=== PATIENT | female | born 1960 | race African-American/Black ===

== ENCOUNTER 2022-06-30 11:48 | Emergency (ER) | payer OTHER | END 2022-06-30 13:16 | disposition home or self-care (01) | LOC: CSHERS 11:48 | DX: S20.212A Contusion of left front wall of thorax, initial encounter (principal); G62.9 Polyneuropathy, unspecified; J32.9 Chronic sinusitis, unspecified; E11.9 Type 2 diabetes mellitus without complications; E78.00 Pure hypercholesterolemia, unspecified; F17.210 Nicotine dependence, cigarettes, uncomplicated; Z79.899 Other long term (current) drug therapy; W19.XXXA Unspecified fall, initial encounter | CPT/HCPCS: 99283 ==

== ENCOUNTER 2022-09-13 15:59 | Observation (INO) | payer OTHER ==
[2022-09-13] MEDS ORDERED: Ketorolac Tromethamine 30 MG/ML VIAL ONE (16:42)
[2022-09-13] MEDS ORDERED: Lorazepam 2 MG/ML VIAL ONE (16:43)
[2022-09-13] MEDS ORDERED: Ondansetron PF 4 MG/2 ML Vial ONE (17:30)
[2022-09-13 17:37] LABS: PTT 28.6 sec (22.0-33.0); Prothrombin Time 10.9 sec (9.5-12.1)
[2022-09-13 17:42] LABS: ALT (SGPT) 16 U/L (8-55); AST (SGOT) 18 U/L (5-34); Acetaminophen Less than 10 mcg/mL (10.0-30.0); Albumin 3.9 g/dL (3.4-4.8); Alcohol Less than 10.0 mg/dL (Less than 10); Alkaline Phosphatase 56 U/L (40-110); Anion Gap 14 mmol/L (10-20); BUN (Urea Nitrogen) 6 mg/dL (9.8-20.1); Bilirubin, Total 0.3 mg/dL (0.2-1.2); Calc. Creatinine Clearance 0 mL/min (70-130); Carbon Dioxide 24 mmol/L (23-31); Chloride 105 mmol/L (98-107); Estimated GFR 76; Globulin 2.7 g/dL (2.4-3.5); Glucose 142 mg/dL (80-115); Magnesium 2.1 mg/dL (1.6-2.6); Potassium 4.2 mmol/L (3.5-5.1); Protein, Total 6.6 g/dL (5.8-8.1); Salicylate Less than 8.0 mg/dL (15.0-30.0); Sodium 139 mmol/L (136-145)
[2022-09-13 18:03] LABS: Hemoglobin 12.6 g/dL (12.0-15.5); Mean Corpuscular HGB CONC 33.6 g/dL (32.0-36.0); Mean Corpuscular Hemoglobin 31.8 pg (27.0-33.0); Mean Corpuscular Volume 94.7 fl (81.6-98.3); Mean Platelet Volume 8.9 fl (7.4-10.4); Platelet Count 355 10x3/uL (150-450); RBC Distribution Width 13.9 % (11.5-14.5); Red Blood Cell (RBC) Count 3.96 10x6/uL (3.90-5.03); White Blood Cell (WBC) Count 5.8 10x3/uL (3.5-10.5)
[2022-09-13 18:16] LABS: MDiff Complete? YES
[2022-09-13 18:23] LABS: Eosinophils 3 % (0-10); Lymphocytes 45 % (21-51); Monocytes 3 % (0-10); Neutrophil 46 % (42-75)
[2022-09-13 18:24] LABS: Large Platelets SLIGHT (None Seen); Platelet Adequacy Comment Appears Adequate; Platelet Satellitism SLIGHT; RBC Morph Comment Within Normal Limits
[2022-09-13] MEDS ORDERED: Senokot S 8.6-50 MG TAB PO PRN (19:51)
[2022-09-13] MEDS ORDERED: Guaifenesin DM 100-10/5 ML UDCUP PO PRN (19:51)
[2022-09-13] MEDS ORDERED: Calcium Carbonate 500 MG ChewTAB PO PRN (19:51)
[2022-09-13] MEDS ORDERED: Dextrose 5% in Water 1,000 ML IV PRN (19:51)
[2022-09-13] MEDS ORDERED: Glucagon 1 MG/ML KIT IM PRN (19:51)
[2022-09-13] MEDS ORDERED: Dextrose 50% Abboject 50 ML SYRINGE SLOW IVP PRN (19:51)
[2022-09-13] MEDS ORDERED: Ondansetron PF 4 MG/2 ML Vial IVP PRN (19:51)
[2022-09-13] MEDS ORDERED: Acetaminophen 325 MG TAB PO PRN (19:51)
[2022-09-13 23:25] LABS: Amphetamine Not Detected (NotDetected); Barbiturates Screen Not Detected (NotDetected); Benzodiazepine Screen Detected (NotDetected); Cocaine Metabolite Screen Detected (NotDetected); Methadone Not Detected (NotDetected); Methamphetamine Not Detected (NotDetected); Opiate Screen Not Detected (NotDetected); Oxycodone Screen Not Detected (NotDetected); Phencyclidine (PCP) Not Detected (NotDetected); THC/Cannabinoid Screen Detected (NotDetected); Tricyclic Screen Not Detected (NotDetected)
[2022-09-13] MEDS ORDERED: Lactated Ringer's 1,000 ML IV SCH (23:45)
[2022-09-13] MEDS ORDERED: Aspirin 81 mg Enteric Coated Tablet PO SCH (23:45)
[2022-09-13] MEDS ORDERED: Gabapentin 100 MG CAP PO SCH (23:45)
[2022-09-13] MEDS ORDERED: Atorvastatin Calcium 10 MG TAB PO SCH (23:45)
[2022-09-13] MEDS ORDERED: Aspirin Chewable 81 MG TAB ONE (23:46)
[2022-09-13] MEDS ORDERED: Atorvastatin Calcium 10 MG TAB ONE (23:47)
[2022-09-14 04:10] LABS: Anion Gap 12 mmol/L (10-20); BUN (Urea Nitrogen) 7 mg/dL (9.8-20.1); CK (CPK) 46 U/L (29-168); Calc. Creatinine Clearance 51 mL/min (70-130); Carbon Dioxide 24 mmol/L (23-31); Chloride 107 mmol/L (98-107); Estimated GFR 88; Glucose 106 mg/dL (80-115); Potassium 4.3 mmol/L (3.5-5.1); Sodium 139 mmol/L (136-145)
[2022-09-14 04:15] LABS: Cholesterol 201 mg/dl (< 200 Desired); HDL Cholesterol 50 mg/dL (>60 Neg Risk); LDL Cholesterol, Calculated 134 mg/dL; Triglycerides 87 mg/dL (Less than 150)
[2022-09-14] MEDS ORDERED: Aspirin Chewable 81 MG TAB ONE (08:15)
[2022-09-14] MEDS ORDERED: Gabapentin 300 MG CAP ONE (08:44)
[2022-09-14] MEDS ORDERED: Hydrochlorothiazide 25 MG TAB PO SCH (09:00)
[2022-09-14] MEDS ORDERED: Lisinopril 2.5 MG TAB PO SCH (09:00)
[2022-09-14] MEDS ORDERED: Aspirin 81 mg Enteric Coated Tablet PO SCH (09:00)
[2022-09-14] MEDS: Gabapentin 100 MG CAP PO SCH ×2 (09:14→15:40)
[2022-09-14 12:03] LABS: Hemoglobin A1c 5.6 % (4.0-6.0)
[2022-09-14 13:09] VITALS: BP 178/86; TEMP 98.7
[2022-09-14 14:32] LABS: Bilirubin Neg (Negative); Blood, Urine Negative (Negative); Clarity Clear (Clear); Glucose, Urine (Dipstick) Normal (Negative); Ketone, Urine Negative (Negative); Leukocyte Negative (Negative); Nitrite Negative (Negative); Protein, Urine (Dipstick) Negative (Neg-Trace); Urobilinogen Normal mg/dL (Less than 2)
[2022-09-14 14:40] LABS: Bacteria/HPF Rare-Few HPF (None Seen); Mucous/LPF 1+ LPF (<2+); RBC/HPF None Seen HPF (0-3); Squamous Epithelial 0-3 HPF (0-3); WBC/HPF 0-3 HPF (0-3)
[2022-09-14] MEDS ORDERED: Atorvastatin Calcium 10 MG TAB PO SCH (21:00)
== END 2022-09-14 16:18 | disposition home or self-care (01) ==
LOC: CSHERS 15:59 → INTOOBSV 22:42 → CSHERHOLD 22:42 → CSHTELE 09-14 12:46
PROVIDERS: ADMIT Student in an Organized Health Care Education/Training Program; ATTEND Nurse Practitioner Family
DX: R53.1 Weakness (principal); E11.40 Type 2 diabetes mellitus with diabetic neuropathy, unspecified; I10 Essential (primary) hypertension; R64 Cachexia; E78.5 Hyperlipidemia, unspecified; F41.8 Other specified anxiety disorders; Z91.199 Patient's noncompliance with other medical treatment and regimen due to unspecified reason; Z79.891 Long term (current) use of opiate analgesic
CPT/HCPCS: 36415; 36416; 70450; 70551; 71045; 80048; 80053; 80061; 80306; 80307; 81001; 82550; 83036; 83605; 83690; 83735; 83880; 84443; 84484; 85025; 85610; 85730; 87040; 87086; 93005; 93010; 93306; 93880; 96372; 96374; 96375; G0378; J1650; J1885; J2060; J2405; J7120

== ENCOUNTER 2022-12-01 09:05 | Emergency (ER) | payer OTHER ==
[2022-12-01] MEDS ORDERED: Ketorolac Tromethamine 30 MG/ML VIAL ONE (10:38)
[2022-12-01] MEDS ORDERED: Hydrocodone-Acetamin 15 ML UDCUP ONE (10:38)
== END 2022-12-01 11:44 | disposition home or self-care (01) ==
LOC: CSHERS 09:05
DX: J01.90 Acute sinusitis, unspecified (principal); L30.9 Dermatitis, unspecified; E11.9 Type 2 diabetes mellitus without complications; Z87.891 Personal history of nicotine dependence
CPT/HCPCS: 71045; 96372; J1885